=== PATIENT | male | born 1970 | race Caucasian/White ===

== ENCOUNTER 2018-03-14 06:05 | Observation (INO) | payer OTHER ==
[2018-03-03 08:14] VITALS: BMI 32.0
--- NOTE | 2018-03-03 09:15 | DIAGNOSTIC IMAGING REPORT ---
CHEST 2 VIEWS ROUTINE CLINICAL HISTORY: PAT preoperative evaluation COMPARISON STUDY: No previous studies for comparison. FINDINGS: The bones soft tissues and hemidiaphragms are normal. The cardiomediastinal silhouette is normal. The lungs are clear. The pulmonary vasculature is normal. IMPRESSION: Negative chest. The above report was generated using voice recognition software. It may contain grammatical, syntax or spelling errors. Electronically signed by: Ajit Laboy M.D. 03/03/2018 9:13 AM Dictated Date/Time: 03/03/2018 9:12 AM
[2018-03-03 10:00] LABS: BASO % 0.3 %; BASO ABS # 0.02 K/uL (0-0.2); EOS % 1.2 %; EOS ABS # 0.07 K/uL (0-0.5); HEMATOCRIT 44.3 % (42-52); HEMOGLOBIN 15.8 g/dL (14.0-18.0); IG# 0.03 K/uL (0.00-0.02); LYMPH % 22.5 %; LYMPH ABS # 1.34 K/uL (1.2-3.4); MEAN CORPUSCULAR HEMOGLOBIN 31.7 pg (25-34); MEAN CORPUSCULAR HGB CONC 35.7 g/dl (32-36); MEAN PLATELET VOLUME 10.4 fL (7.4-10.4); MONO % 8.4 %; NEUT % 67.1 %; PLATELET COUNT 211 K/uL (130-400); RED CELL DISTRIBUTION WIDTH CV 13.3 % (11.5-14.5); RED CELL DISTRIBUTION WIDTH SD 43.2 fL (36.4-46.3); WHITE BLOOD COUNT 5.96 K/uL (4.8-10.8)
[2018-03-03 10:21] LABS: POTASSIUM 4.8 mmol/L (3.5-5.1)
[2018-03-03 12:14] VITALS: Ht 193 cm; Wt 121.6 kg
[2018-03-13 23:30] VITALS: O2SAT 96
[2018-03-14] VITALS (15 sets, daily range): BP systolic 134–163; BP diastolic 78–107; PULSE 76–94; TEMP 36.5–36.8; O2SAT 95–98
[~2018-03-14] VITALS: Ht 193 cm; Wt 121.6 kg
[~2018-03-14 06:05] MED LIST: ACETAMINOPHEN 500 MG TAB PO SCH; CEFAZOLIN 2000MG IV PUSH 15 ML IV SCH; CeleBREX 200 MG CAP PO SCH; GABAPENTIN 900 MG PO SCH; LACTATED RINGER'S 1000ML 1,000 ML IV SCH
[2018-03-14] MEDS ORDERED: FENTANYL CITRATE INJ 50 MCG/1 ML 2 ML VIAL ONE ×4 (06:44→09:16)
[2018-03-14] MEDS ORDERED: MIDAZOLAM HCL 1 MG/ML 2ML VIAL ONE (06:44)
[2018-03-14] MEDS ORDERED: HYZ/50125 PO (06:44)
[2018-03-14] MEDS ORDERED: BACITRACIN 50000 UNIT VIAL ONE (06:59)
[2018-03-14] MEDS ORDERED: BUPIVACAINE/EPINEPHRINE 0.5% MPF 1:200,000 30 ML VIAL ONE (06:59)
--- NOTE | 2018-03-14 07:28 | History & Physical Bridge Note ---
H&P Re-Evaluation Bridge Note: I have examined the patient, reviewed the History & Physical and in the interval since the performance of the History & Physical I have noted the following changes of clinical significance: No changes noted
--- NOTE | 2018-03-14 07:30 | History and Physical ---
History & Physical Date Mar 14, 2018. Chief Complaint Neck and arm pain History of Present Illness The patient is a 47 year old male with complaints of neck and arm pain Additional History Hepatic Disease: No Endocrine Disorder: No Kidney Disease: No Hypertension: No Heart Disease: No Bleeding Tendencies: No Infectious Diseases: No Allergies Coded Allergies: No Known Allergies (Unverified , 03/14/18) Home Medications Scheduled Hctz/Losartan (Hyzaar 12.5MG/50MG), 1 TAB PO DAILY Physical Examination Skin: warm/dry, no rash Eyes: normal inspection, EOMI, sclerae normal ENT: normal ENT inspection, pharynx normal Head: normocephalic, atraumatic Neck: supple, no adenopathy, trachea midline Respiratory/Chest: lungs clear, normal breath sounds, no respiratory distress Cardiovascular: regular rate, rhythm, no edema, no murmur Abdomen / GI: normal bowel sounds, non tender Back: normal inspection Extremities: normal inspection, normal range of motion Neurologic/Psych: no motor/sensory deficits, alert, normal reflexes, oriented x 3 Diagnosis Cervical spinal stenosis with radiculopathy Plan of Treatment ACDF C5-6 C6-7
[2018-03-14] MEDS ORDERED: HYDROmorphone INJ 2 MG/ML SYR/VIAL ONE ×2 (08:09→09:27)
[2018-03-14] MEDS ORDERED: DEXAMETHASONE SOD INJ 4 MG/ML VIAL ONE (08:26)
[2018-03-14] MEDS ORDERED: ONDANSETRON INJ 2 MG/ML 2 ML VIAL ONE ×2 (08:26→10:25)
[2018-03-14] MEDS ORDERED: PROPOFOL IV EMULSION 10 MG/ML 20 ML VIAL IV ONE (08:26)
[2018-03-14] MEDS ORDERED: PHENYLEPHRINE 100MCG/ML 5ML SYR ONE ×2 (08:26→10:25)
[2018-03-14] MEDS ORDERED: LIDOCAINE HCL 2% 2 ML VIAL (20MG/ML) ONE (08:26)
[2018-03-14] MEDS ORDERED: HYDROmorphone INJ 0.5 MG/0.5 ML SYR IV PRN (08:45)
[2018-03-14] MEDS ORDERED: ATROPINE SULFATE 0.1 MG/ML 5ML SYR IV PRN (08:45)
[2018-03-14] MEDS ORDERED: EpHEDrine SULFATE INJ 50 MG/ML AMP IV PRN (08:45)
[2018-03-14] MEDS ORDERED: ONDANSETRON INJ 2 MG/ML 2 ML VIAL IV PRN ×2 (08:45→09:30)
[2018-03-14] MEDS ORDERED: MEPERIDINE HCL 25 MG/ML CARP IV PRN (08:45)
[2018-03-14] MEDS ORDERED: LABETALOL HCL IV 5 MG/ML 20ML IV PRN (08:45)
[2018-03-14] MEDS ORDERED: FLOSEAL HEMOSTATIC MATRIX 10ML TOP ONE (09:17)
--- NOTE | 2018-03-14 09:24 | [facility] Operative Report ---
Operative Report Operative Date Mar 14, 2018. Pre-Operative Diagnosis Cervical spinal stenosis with radiculopathy Post-Operative Diagnosis Cervical spinal stenosis with radiculopathy Procedure(s) Performed 1. anterior cervical discectomy bilateral foraminotomies C5-6 C6-7. 2 anterior cervical arthrodesis C5-6 C6-7. #3 placement of cortical allograft filled with DBM 8 mm in height at C5-6 C6-7. #4 application of silveira plate and screws across C5-6 C6-[address] Muniz Pedodontist Surgeon(s) CRISTINA Resendiz Estimated Blood Loss 10ml Findings Spinal stenosis Specimens none per surgeon Anesthesia Type General Description of Procedure Patient was met with preoperatively case discussed all questions addressed. After informed consent obtained patient was taken to the operative suite underwent intubation and placed in a supine position the Beni head in the [place] headholder. All bony prominences well-padded eyes inspected to ensure no external pressure placed upon. This point the anterior cervical spine was prepped and draped in normal sterile fashion. Sharp dissection with the assistance of bipolar electrocautery was performed down to and exposing the anterior cervical spine at C5-6 and 7. Self-retaining retractors placed. I verified position with fluoroscopy. Then performed a complete discectomy of C5- 6 up to the uncovertebral joints bilaterally. Scammon distracting pins utilized to assist in visualization. Removed all posterior annular fibers longitudinal ligament and bilateral foraminotomies performed addressing significant stenosis. The endplates then burred to subcortical bleeding bone and an 8 mm cortical allograft filled DBM was tapped in position. Distracting apparatus was removed and I proceeded to C6-7. Again complete discectomy performed up to the uncovertebral joints bilaterally. I removed all posterior annular fibers longitudinal ligament bilateral foraminotomies performed. Endplates burred to subcortical bleeding bone and again an 8 mm cortical allograft filled DBM tapped in position. Distracting apparatus was removed. All anterior osteophyte burred to a smooth cortical surface and a silveira plate and screws applied with the assistance of fluoroscopy. Incision was then copiously irrigated explored to ensure there is no damage to surrounding structures remaining bleeding. 10 round JENNIFER drain inserted. Incision was then closed with 2 Vicryl in a fashion for Monocryl for fashion closure. Steri-Strips sterile dressings placed. Patient weakened the PACU stable discrete please note Denny Gray was present throughout the entire procedure involved in patient positioning complex portions of the surgery and fashion closure. I attest to the content of the Intraoperative Record and any orders documented therein. Any exceptions are noted below.
[2018-03-14] MEDS ORDERED: DEXAMETHASONE INJ 8 MG in SYRINGE 0 ML IV PRN (09:30)
[2018-03-14] MEDS ORDERED: LORAZEPAM 0.5 MG TAB PO PRN (09:30)
[2018-03-14] MEDS ORDERED: DO NOT ADMINISTER FLU VACCINE PRN (09:30)
[2018-03-14] MEDS ORDERED: DiphenhydrAMINE HCL 50 MG/ML VIAL IV PRN (09:30)
[2018-03-14] MEDS ORDERED: DO NOT ADMINISTER PNEUMOCOCCAL VACCINE PRN (09:30)
[2018-03-14] MEDS ORDERED: NALOXONE HCL 0.4 MG/1 ML VIAL/CARP IV PRN (09:30)
[2018-03-14] MEDS ORDERED: ACETAMINOPHEN IV 1,000 MG in EMPTY BAG 0 ML IV PRN (09:30)
[2018-03-14] MEDS ORDERED: LORAZEPAM INJ 0.5 MG in SYRINGE 0.75 ML IV PRN (09:30)
[2018-03-14] MEDS ORDERED: RACEPINEPHRINE 2.25% NEBU SOLN 0.5 ML VIAL INH PRN (09:30)
[2018-03-14] MEDS ORDERED: MAGNESIUM HYDROXIDE SUSP 30 ML UDC PO PRN (09:30)
[2018-03-14] MEDS: FENTANYL CITRATE INJ 50 MCG/1 ML 2 ML VIAL IV PRN ×3 (09:59→10:13)
[2018-03-14] MEDS ORDERED: EpHEDrine SULFATE 50MG/5ML SYR ONE (10:25)
[2018-03-14] MEDS ORDERED: NEOSTIGMINE METHYLSULFATE 1 MG/ML 10ML VIAL ONE (10:25)
[2018-03-14] MEDS ORDERED: GLYCOPYRROLATE INJ 0.2 MG/ML VIAL ONE (10:25)
[2018-03-14] MEDS ORDERED: ROCURONIUM BROMIDE 10 MG/ML 5 ML VIAL IV ONE (10:25)
[2018-03-14] MEDS ORDERED: IV FLUIDS COMPLETED PRN (10:30)
--- NOTE | 2018-03-14 10:46 | Anesthesiology Progress Note ---
Anesthesia Post Op Note Date & Time Mar 14, 2018 at 10:46 Vital Signs Pain Intensity: 4 Vital Signs Past 12 Hours Date Time Temp Pulse Resp B/P (MAP) Pulse Ox O2 Delivery O2 Flow Rate FiO2 03/14/18 10:35 37.2 77 12 167/107 99 Nasal Cannula 3 03/14/18 10:25 86 12 161/104 99 Nasal Cannula 3 03/14/18 10:15 73 15 162/102 98 Nasal Cannula 3 03/14/18 10:05 73 15 145/104 98 Nasal Cannula 3 03/14/18 09:55 73 17 162/108 99 Oxymask 10 03/14/18 09:45 80 12 151/102 100 Oxymask 10 03/14/18 09:37 36.3 91 12 169/102 98 Oxymask 10 03/14/18 06:48 36.8 76 18 163/107 (125) 98 Room Air Notes Mental Status: alert / awake / arousable, participated in evaluation Pt Amnestic to Procedure: Yes Nausea / Vomiting: adequately controlled Pain: adequately controlled Airway Patency, RR, SpO2: stable & adequate BP & HR: stable & adequate Hydration State: stable & adequate Anesthetic Complications: no major complications apparent
--- NOTE | 2018-03-14 11:54 | DIAGNOSTIC IMAGING REPORT ---
CERVICAL 2 OR 3 VIEWS CLINICAL HISTORY: ACDF C5-7 COMPARISON STUDY: No previous studies for comparison. Fluoroscopy time: 21 seconds. FINDINGS: Exact localization is difficult given partial visualization of the cervical spine. These images demonstrate a 3 level anterior discectomy and fusion within the lower cervical spine, likely at the C5, C6 and C7 levels. IMPRESSION: Fluoroscopic images demonstrating an anterior cervical spine discectomy and fusion, likely at C5-C7. Electronically signed by: Travis Carvajal M.D. 03/14/2018 11:52 AM Dictated Date/Time: 03/14/2018 11:51 AM
[2018-03-14] MEDS ORDERED: SCOPOLAMINE 1.5 MG TDSY TD SCH (12:00)
[2018-03-14] MEDS ORDERED: LOSARTAN POTASSIUM 50 MG TAB PO ONE (12:00)
[2018-03-14] MEDS: HYDROmorphone INJ 0.5 MG/0.5 ML SYR IV PRN ×3 (12:21→20:32)
[2018-03-14] MEDS ORDERED: HydrALAZINE HCL 20 MG/ML VIAL IV. PRN (12:45)
[2018-03-14] MEDS ORDERED: NURSING VERBAL MED ORDER ONE (12:50)
[2018-03-14] MEDS: SODIUM CHLORIDE 0.9% 1000ML 1,000 ML IV SCH (12:51)
--- NOTE | 2018-03-14 13:03 | Medical Consult ---
Consultation Date of Consultation: Mar 14, 2018. Attending Physician: Sharif Muniz D.O. Reason for Consultation: post-op med management History of Present Illness This is a 47 yo F with a PMH of cervical stenosis who is POD #0 s/p cervical anterior discectomy of C5-C7 by Dr. Muniz. Patient is doing well post- operatively. States that back pain is a 6/10. Denies any pain, fever, chills, lightheadedness, headache, visual changes, sore throat, CP, SOB, abdominal pain , nausea, vomiting, dysuria or LE swelling. Denies history of DM II, heart disease or DVT/PE. PCP is Dr. Howard. Past Medical/Surgical History Medical Problems: (1) Cervical stenosis of spinal canal Status: Chronic (2) HTN (hypertension) Status: Chronic Surgical Problems: (1) History of arthroscopy of both knees Status: Resolved Family History FH: prostate cancer Hypertension Social History Smoking Status: Never Smoker Marital Status: Housing Status: lives with family Allergies Coded Allergies: No Known Allergies (Unverified , 03/14/18) Home Medications Reported Home Medications Medications Dose Route/Sig Max Daily Dose Days Date Category Aspirin 81 (Aspirin) 81 Mg Tab 1 Tab PO DAILY 03/14/18 Reported Hyzaar 12.5MG/50MG (HCTZ/Losartan Potassium) Tab 1 Tab PO DAILY 30 03/14/18 Reported Current Inpatient Medications Current Inpatient Medications Medications (Trade) Dose Ordered Sig/Lana Route Start Time Stop Time Status Last Admin Dose Admin Lactated Ringer's 1,000 ml @ 15 mls/hr Q24H IV 03/14/18 06:00 03/14/18 18:00 03/14/18 06:59 15 MLS/HR Cefazolin Sodium 15 ml @ 3.75 mls/ min PREOP IV 03/14/18 06:00 03/14/18 18:00 03/14/18 07:38 3.75 MLS/MIN Acetaminophen (Tylenol Tab) 1,000 mg PREOP PO 03/14/18 06:00 03/14/18 18:00 03/14/18 07:01 1,000 MG Celecoxib (CeleBREX CAP) 200 mg PREOP PO 03/14/18 06:00 03/14/18 18:00 03/14/18 07:00 200 MG Gabapentin (Neurontin Cap) 900 mg PREOP PO 03/14/18 06:00 03/14/18 18:00 03/14/18 07:00 900 MG Fentanyl Citrate (Fentanyl Inj) 50 mcg Q5M PRN IV 03/14/18 08:45 03/14/18 15:00 03/14/18 10:13 50 MCG Hydromorphone HCl (Dilaudid Inj) 0.5 mg Q5M PRN IV 03/14/18 08:45 03/14/18 15:00 Meperidine HCl (Demerol Inj) 25 mg Q5M PRN IV 03/14/18 08:45 03/14/18 15:00 Ondansetron HCl (Zofran Inj) 4 mg ONE PRN IV 03/14/18 08:45 03/14/18 15:00 Labetalol HCl (Normodyne IV) 5 mg Q5M PRN IV 03/14/18 08:45 03/14/18 15:00 Ephedrine Sulfate (EpHEDrine SULFATE INJ) 5 mg Q5M PRN IV 03/14/18 08:45 03/14/18 15:00 Atropine Sulfate (Atropine Sulfate 0.1mg/ml Inj) 0.5 mg Q1M PRN IV 03/14/18 08:45 03/14/18 15:00 Racepinephrine (Raccemic Epinephrine 2.25% 0.5ML Neb) 0.5 ml ONE PRN INH 03/14/18 09:30 04/13/18 09:29 Acetaminophen 1000 mg/Empty Bag 100 ml @ 400 mls/hr Q8H PRN IV 03/14/18 09:30 04/13/18 09:29 Hydromorphone HCl (Dilaudid Inj) 0.5mg IV for moder... Q3H PRN IV 03/14/18 09:30 03/28/18 09:29 03/14/18 12:21 1 MG Magnesium Hydroxide (Milk Of Magnesia Susp) 30 ml DAILY PRN PO 03/14/18 09:30 04/13/18 09:29 Docusate Sodium (coLACE CAP) 100 mg BID PO 03/14/18 21:00 04/13/18 20:59 Ondansetron HCl (Zofran Inj) 4 mg Q6 PRN IV 03/14/18 09:30 04/13/18 09:29 Scopolamine (Transderm-Scop Patch) 1.5 mg Q72H TD 03/14/18 12:00 04/13/18 11:59 03/14/18 12:53 1.5 MG Cefazolin Sodium 2000 mg/Syringe 15 ml @ 3.75 mls/ min Q8H IV 03/14/18 18:00 03/15/18 10:03 Lorazepam (Ativan Tab) 0.5 mg Q8H PRN PO 03/14/18 09:30 04/13/18 09:29 Lorazepam 0.5 mg/ Syringe 1 ml @ 1 mls/min Q8H PRN IV 03/14/18 09:30 04/13/18 09:29 Diphenhydramine HCl (Benadryl Inj) 25 mg Q6H PRN IV 03/14/18 09:30 04/13/18 09:29 Pneumococcal Polysaccharide Vaccine 1 ea PRN PRN N/A 03/14/18 09:30 04/13/18 09:29 Influenza Virus Vacc Triv Types A&B 1 ea PRN PRN N/A 03/14/18 09:30 04/13/18 09:29 Sodium Chloride 1,000 ml @ 80 mls/hr [id number] IV 03/14/18 12:00 03/15/18 11:59 03/14/18 12:51 80 MLS/HR Oxycodone/ Acetaminophen (Percocet 5-325mg Tab) 1 tablet for pain scale ... Q4H PRN PO 03/14/18 09:30 03/28/18 09:29 Polyethylene (Miralax Powder Packet) 17 gm DAILY PO 03/16/18 09:00 04/15/18 08:59 Bisacodyl (Dulcolax Tab) 5 mg DAILY PRN PO 03/16/18 06:00 04/15/18 05:59 Bisacodyl (Dulcolax Supp) 10 mg DAILY PRN DE 03/16/18 06:00 04/15/18 05:59 Dexamethasone Sodium Phosphate 8 mg/Syringe 2 ml @ 1 mls/min ONE PRN IV 03/14/18 09:30 04/13/18 09:29 Naloxone HCl (Narcan Inj) 0.1 mg Q5M PRN IV 03/14/18 09:30 04/13/18 09:29 Miscellaneous (Remove Transderm-Scop Patch) 1 ea Q72H N/A 03/17/18 11:59 04/16/18 11:58 Miscellaneous Information (Check Scopolamine Patch Placement) 1 ea QS N/A 03/14/18 16:00 04/13/18 15:59 HCTZ/Losartan Potassium (Hyzaar 50-12.5 Tab) 1 tab DAILY PO 03/15/18 09:00 04/14/18 08:59 Miscellaneous (Iv Fluids Completed) 1 ea PRN PRN N/A 03/14/18 10:30 03/14/19 10:29 Hydralazine HCl (HydrALAZINE INJ) 10 mg Q8 PRN IV. 03/14/18 12:45 04/13/18 12:44 Review of Systems Ten systems reviewed and negative except as noted in the HPI. Physical Exam Date Time Temp Pulse Resp B/P (MAP) Pulse Ox O2 Delivery O2 Flow Rate FiO2 03/14/18 12:20 36.6 83 16 153/103 95 Nasal Cannula 2.0 Humidified Oxygen 03/14/18 11:50 36.6 78 16 152/103 97 Nasal Cannula 2.0 Humidified Oxygen 03/14/18 11:20 Nasal Cannula 2.0 Humidified Oxygen 03/14/18 11:20 36.7 80 16 154/99 98 Nasal Cannula 2.0 Humidified Oxygen 03/14/18 11:20 98 Nasal Cannula 2.0 Humidified Oxygen 03/14/18 11:00 74 12 149/100 97 Nasal Cannula 2 03/14/18 10:50 73 12 155/100 99 Nasal Cannula 3 03/14/18 10:35 37.2 77 12 167/107 99 Nasal Cannula 3 03/14/18 10:25 86 12 161/104 99 Nasal Cannula 3 03/14/18 10:15 73 15 162/102 98 Nasal Cannula 3 03/14/18 10:05 73 15 145/104 98 Nasal Cannula 3 03/14/18 09:55 73 17 162/108 99 Oxymask 10 03/14/18 09:45 80 12 151/102 100 Oxymask 10 03/14/18 09:37 36.3 91 12 169/102 98 Oxymask 10 03/14/18 06:48 36.8 76 18 163/107 (125) 98 Room Air General Appearance: WD/WN, no apparent distress, + pertinent finding (Resting comfortably, sleeping intermittently during exam ) Head: normocephalic, atraumatic Eyes: normal inspection, PERRL, sclerae normal ENT: normal ENT inspection, hearing grossly normal, pharynx normal (moist mucous membranes ) Neck: supple, thyroid normal, trachea midline, + pertinent finding (Dressing in place on anterior neck. Clean, dry, intact. Drain visualized. ) Respiratory/Chest: chest non-tender, lungs clear, normal breath sounds, no respiratory distress, no accessory muscle use Cardiovascular: regular rate, rhythm, no murmur, normal peripheral pulses Abdomen/GI: non tender, soft, no organomegaly Back: normal inspection Extremities/Musculoskelatal: normal inspection, no calf tenderness, no pedal edema, + pertinent finding (SCDs ) Neurologic/Psych: no motor/sensory deficits, alert, normal mood/affect, oriented x 3 Skin: normal color, warm/dry Laboratory Results Pertinent pre-op labs: Item Value Date Time White Blood Count 5.96 K/uL 03/03/18 0850 Red Blood Count 4.98 M/uL 03/03/18 0850 Hemoglobin 15.8 g/dL 03/03/18 0850 Platelet Count 211 K/uL 03/03/18 0850 Sodium Level 137 mmol/L 03/03/18 0850 Potassium Level 4.8 mmol/L 03/03/18 0850 Chloride Level 107 mmol/L 03/03/18 0850 Blood Urea Nitrogen 11 mg/dl 03/03/18 0850 Creatinine 1.00 mg/dl 03/03/18 0850 Estimated GFR (Non- 89.2 03/03/18 0850 Assessment & Plan This is a 47 yo F with a PMH of cervical stenosis who is POD #0 s/p cervical anterior discectomy of C5-C7. Cervical stenosis s/p anterior cervical discectomy: -POD #[address] Muniz -Doing well post-operatively -Per ortho for pain control, wound care, anticoagulation and activities -Monitor H&H, continue incentive spirometry, PT/OT when appropriate HTN: -BP elevated ~150/100 post-operatively -Took home dose hctz-losartan this AM -Nothing given post-operatively in PACU -Post-op pain a likely contributor -Hydralazine PRN -Cont home hctz-losartan qAM -Monitor PCP: Norma Dispo: Per ortho Patient seen in collaboration with Dr. Ryder. Please see addendum. Thank you for this consultation. We will follow the patient with you during their hospital stay. You can reach a member of the [facility] Hospitalist Team 10/06 via pager @ [phone]. Attending Addendum Pt was seen and examined. Agreed with Mary ROSSI exam, assessment and plan. 47 yo F with a PMH of cervical stenosis, s/p cervical anterior discectomy of C5- C7 doen today by Dr. Muniz. Lying in bed sleeping with family at bedside. He just received Dilaudid for the pain. No post op complications. Medicine was consulted for HTN with BP in the 150's/100's. Received IV hydralazine and BP improved now. Continue monitor BP. Continue incentive spirometry , PT/OT. MD Aleksey
[2018-03-14] MEDS ORDERED: ASPI-435 PO (13:16)
[2018-03-14] MEDS ORDERED: HydrALAZINE HCL 20 MG/ML VIAL IV. ONE (13:30)
[2018-03-14] MEDS: CHECK SCOPOLAMINE PATCH PLACEMENT SCH (15:19)
[2018-03-14] MEDS: CEFAZOLIN IV 2,000 MG in SYRINGE 0 ML IV SCH (18:17)
[2018-03-14] MEDS: OXYCODONE/ACETAMINOPHEN 5-325 TAB PO PRN (18:30)
[2018-03-14] MEDS: DOCUSATE SODIUM 100 MG CAP PO SCH (20:31)
[2018-03-15] VITALS (13 sets, daily range): BP systolic 124–141; BP diastolic 78–91; PULSE 65–80; TEMP 36.5–36.9; O2SAT 97–99
[2018-03-15] MEDS: CHECK SCOPOLAMINE PATCH PLACEMENT SCH ×2 (00:09→07:25)
[2018-03-15] MEDS: SODIUM CHLORIDE 0.9% 1000ML 1,000 ML IV SCH (00:30)
[2018-03-15] MEDS: CEFAZOLIN IV 2,000 MG in SYRINGE 0 ML IV SCH ×2 (02:07→09:56)
--- NOTE | 2018-03-15 07:56 | Orthopedic Progress Note ---
Orthopedic Progress Note Date of Service Mar 15, 2018. Subjective Post OP Day: 1 Reports: feeling well Additional Notes: Patient has complaints of anterior and posterior neck pain only. No radicular upper extremity symptoms. He has been on a liquid diet but no dysphagia thus far. He is up and ambulatory around his room and voiding without issue. JENNIFER drain output last shift was 15 cc. No other complaints. Objective calves soft nontender, N/V intact, dressing C/D/I, A&O x3, toes mobile He sitting in bed with Hammon J collar in place. Cervical dressing is clean dry and intact. He is in no obvious distress. Upper extremity strength intact. Calves soft nontender bilaterally. Date Time Temp Pulse Resp B/P (MAP) Pulse Ox O2 Delivery O2 Flow Rate FiO2 03/15/18 07:45 36.6 73 18 135/86 (102) 98 Room Air 03/15/18 07:04 80 14 97 Room Air 03/15/18 06:28 36.5 65 16 141/91 (108) 99 Nasal Cannula 2.0 03/15/18 06:22 36.5 69 14 141/91 99 Room Air 2.0 03/15/18 04:25 36.6 69 16 127/80 (96) 99 Nasal Cannula 2.0 03/15/18 04:24 36.6 69 14 127/80 (96) 99 Nasal Cannula 2.0 Humidified Oxygen 03/15/18 04:23 36.6 69 14 127/80 99 Nasal Cannula 2.0 Humidified Oxygen 03/15/18 03:32 79 16 99 Nasal Cannula 2.0 03/15/18 02:20 36.6 71 14 124/78 (93) 98 Nasal Cannula 2.0 Humidified Oxygen 03/15/18 02:20 36.6 72 14 124/78 99 Room Air 2.0 Humidified Oxygen 03/15/18 00:22 36.5 71 14 127/79 (95) 98 Nasal Cannula 2.0 Humidified Oxygen 03/15/18 00:22 36.5 71 14 127/79 98 Nasal Cannula 2.0 Humidified Oxygen 03/14/18 23:30 98 Nasal Cannula 2.0 Humidified Oxygen 03/14/18 23:05 78 14 98 Nasal Cannula 2.0 03/14/18 22:20 36.6 77 18 134/78 97 Nasal Cannula 2.0 Humidified Oxygen 03/14/18 20:20 36.6 88 18 151/83 98 Nasal Cannula 2.0 03/14/18 19:32 90 18 98 Nasal Cannula 2.0 03/14/18 18:20 36.5 87 16 138/89 97 Nasal Cannula 2.0 Humidified Oxygen 03/14/18 16:20 36.6 91 16 145/84 97 Nasal Cannula 2.0 Humidified Oxygen 03/14/18 15:49 94 18 97 Nasal Cannula 2.0 03/14/18 15:20 97 Nasal Cannula 2.0 Humidified Oxygen 03/14/18 14:20 36.6 84 16 135/92 97 Nasal Cannula 2.0 Humidified Oxygen 03/14/18 13:20 36.7 85 14 144/89 97 Nasal Cannula 2.0 Humidified Oxygen 03/14/18 12:20 36.6 83 16 153/103 95 Nasal Cannula 2.0 Humidified Oxygen 03/14/18 11:50 36.6 78 16 152/103 97 Nasal Cannula 2.0 Humidified Oxygen 03/14/18 11:20 Nasal Cannula 2.0 Humidified Oxygen 03/14/18 11:20 36.7 80 16 154/99 98 Nasal Cannula 2.0 Humidified Oxygen 03/14/18 11:20 98 Nasal Cannula 2.0 Humidified Oxygen 03/14/18 11:00 74 12 149/100 97 Nasal Cannula 2 03/14/18 10:50 73 12 155/100 99 Nasal Cannula 3 03/14/18 10:35 37.2 77 12 167/107 99 Nasal Cannula 3 03/14/18 10:25 86 12 161/104 99 Nasal Cannula 3 03/14/18 10:15 73 15 162/102 98 Nasal Cannula 3 03/14/18 10:05 73 15 145/104 98 Nasal Cannula 3 03/14/18 09:55 73 17 162/108 99 Oxymask 10 03/14/18 09:45 80 12 151/102 100 Oxymask 10 03/14/18 09:37 36.3 91 12 169/102 98 Oxymask 10 Assessment & Plan Assessment: Postoperative day 1 ACDF Plan: We will DC drain. Continue ambulation. Start a soft diet. And discharge home later today. Inhouse Planning DVT Prophylaxis: TEDs, SCDs Discharge Planning Discharge Planning: home DVT Prophylaxis: Airam
[2018-03-15] MEDS ORDERED: OXYC-57 PO (08:00)
--- NOTE | 2018-03-15 08:03 | Discharge Instructions ---
Discharge Instructions Date of Service Mar 15, 2018. Admission Reason for Admission: Cervical Spinal Stenosis Discharge Discharge Diagnosis / Problem: cervical spinal stenosis s/p ACDF Discharge Goals Goal(s): Decrease discomfort, Improve function Activity Recommendations Activity Limitations: per Instructions/Follow-up section Lifting Limitations: no more than 5 pounds Exercise/Sports Limitations: none Shower/Bathe: tomorrow Driving or Machine Use: . Instructions / Follow-Up Instructions / Follow-Up ACTIVITY RECOMMENDATIONS: SELF CARE INSTRUCTIONS AFTER CERVICAL FUSIONS 1. No smoking. Smoking drastically decreases the chance of a solid fusion. 2. No bending, lifting more than 5 pounds, or twisting (roll like a log when turning in bed). 3. You may shower 3 days after surgery. Thoroughly dry wound. Do not soak in the tub. 4. Cervical collar: Must be worn at all times including sleeping. You may remove the brace only to bath, eat and if you are sitting in a recliner. 5. Please walk as much as you can for exercise. Gradually increase the distance that you walk as your endurance increases. SPECIAL CARE INSTRUCTIONS: VERY IMPORTANT TO READ AND REVIEW A. Do not take any anti-inflammatory medications (i.e. Indocin, Advil, Aspirin, Naprosyn, Aleve, Motrin, etc.) as these may inhibit the chance of a solid fusion. Tylenol is okay to take. B. Your surgical incision has been closed with a cosmetic suture under the skin that will dissolve in about 6 weeks. In 14 days, you can use a pair of clean scissors and cut the suture that is left outside of the skin at the ends of your incision. C. Complications are uncommon, but please contact us if you have any signs or symptoms of: 1. wound infection (fever higher than 102.5 degrees F, redness, separation of wound, drainage, or increasing pain from the incision) 2. blood clots in legs (pain, swelling, redness and warmth in legs) 3. urinary tract infection (fever higher than 102.5 degrees, burning upon urination or increased frequency of urination) 4. nerve problems (inability to walk on your toes or heels, numbness, loss of bowel or bladder control) 5. any other symptoms that concern you. D. Please call the office at if you have any concerns or questions about your operation or recovery. MANAGING PAIN AFTER SPINAL SURGERY 1. Narcotic medication is intended for short-term use and will be provided for surgical pain. Surgical pain usually lasts for a period of 4-6 weeks. Narcotic medication includes Percocet, Vicodin, Darvocet, Tylenol #3 or Lortab. 2. Longer-term pain is more appropriately treated with non-narcotic medication such as Tylenol ES. 3. Muscle spasm is not appropriately treated with narcotics. Muscle relaxers such as Soma, Flexeril or Skelaxin can be used along with Tylenol ES. 4. Remember that we all live with some "aches and pains". This is not unusual or uncommon after an injury or as we get older. 5. We will provide appropriate medication within the normal guidelines of their prescribed use. We will also be very cautious and aware of potential abuse and extended duration of patients' medication needs. 6. Please allow 2-3 days to process refills. Prescriptions will not be mailed but must be picked up at the office. FOLLOW UP VISIT: Keep your scheduled follow-up appointment. Any questions, please call the office at . Current Hospital Diet Patient's current hospital diet: Clear Liquid Diet Discharge Diet Recommended Diet: Regular Diet Procedures Procedures Performed: 1. anterior cervical discectomy bilateral foraminotomies C5-6 C6-7. 2 anterior cervical arthrodesis C5-6 C6-7. #3 placement of cortical allograft filled with DBM 8 mm in height at C5-6 C6-7. #4 application of silveira plate and screws across C5-6 C6-7. Pending Studies Studies pending at discharge: no Medical Emergencies . Who to Call and When: Medical Emergencies: If at any time you feel your situation is an emergency, please call 911 immediately. . Non-Emergent Contact Non-Emergency issues call your: Primary Care Provider, Surgeon Call Non-Emergent contact if: temperature is above 101, your pain is not controlled, your pain is worsening, your pain is concerning you, wound has increased drainage, wound has increased redness . "Provider Documentation" section prepared by Stacy Cochran. .
--- NOTE | 2018-03-15 08:37 | Discharge Summary ---
Orthopedic Discharge Summary Admission Date/Reason Mar 14, 2018 at 09:28 Cervical Spinal Stenosis. Discharge Date/Disposition Mar 15, 2018 Home Diagnosis Principal Diagnosis: Cervical spinal stenosis Procedure(s) Performed ACDF C5-6, C6-7 Medication Reconciliation New Medications: Oxycodone/Acetaminophen 5MG/325MG (Percocet 5MG/325MG) Tab 1-2 TAB PO Q4H PRN for moderate-severe pain, #30 TAB PAIN Continued Medications: Hctz/Losartan (Hyzaar 12.5MG/50MG) Tab 1 TAB PO DAILY for 30 Days, #30 TAB 5 Refills Discontinued Medications: Aspirin (Aspirin 81) 81 Mg Tab 1 TAB PO DAILY Admission Physical Exam As per Admitting History & Physical. Hospital Course Patient has had an uneventful hospital course. Pain is controlled. He is up and ambulatory and voiding without issue. No significant dysphagia. therefore discharged home on postoperative day 1. Discharge Instructions Please refer to the electronic Patient Visit Report (Discharge Instructions) for additional information.
[2018-03-15] MEDS ORDERED: LOSARTAN/HCTZ 50-12.5 EA TAB PO SCH (09:00)
[2018-03-15] MEDS: DOCUSATE SODIUM 100 MG CAP PO SCH (09:14)
[2018-03-15] MEDS: OXYCODONE/ACETAMINOPHEN 5-325 TAB PO PRN (09:17)
[2018-03-16] MEDS ORDERED: BISACODYL 5 MG TABEC PO PRN (06:00)
[2018-03-16] MEDS ORDERED: BISACODYL 10 MG SUPP PR PRN (06:00)
[2018-03-16] MEDS ORDERED: POLYETHYLENE (MIRALAX) 17 GM PACK PO SCH (09:00)
== END 2018-03-15 11:07 | disposition home or self-care (01) ==
LOC: C.ACU 06:05 → C.3E 09:28 → ENRESERV 10:33
PROVIDERS: ADMIT Orthopaedic Surgery Orthopaedic Surgery of the Spine; ATTEND Orthopaedic Surgery Orthopaedic Surgery of the Spine
DX: M48.02 Spinal stenosis, cervical region (principal); M54.12 Radiculopathy, cervical region; I10 Essential (primary) hypertension; Z79.82 Long term (current) use of aspirin; E66.9 Obesity, unspecified; Z68.32 Body mass index [BMI] 32.0-32.9, adult; Z90.89 Acquired absence of other organs

== ENCOUNTER 2024-10-30 06:09 | Observation (INO) ==
--- NOTE | 2024-09-29 09:35 | PAT Medication Instructions ---
Medication Instructions Date of Service September 29, 2024 Home Medications Vitamin D3 1 dose PO QAM aspirin 81 mg capsule 81 mg PO QAM losartan 50 mg-hydrochlorothiazide 12.5 mg tablet 1 tab PO QAM paroxetine HCl 10 mg tablet 10 mg PO QAM ASK your prescriber and surgeon aspirin 81 mg capsule 81 mg PO QAM DO NOT take the morning of surgery Vitamin D3 1 dose PO QAM losartan 50 mg-hydrochlorothiazide 12.5 mg tablet 1 tab PO QAM Take morning of surgery With a small sip of water, OTHERWISE NOTHING TO EAT OR DRINK AFTER MIDNIGHT: paroxetine HCl 10 mg tablet 10 mg PO QAM Other Notes If you have any questions please call us at [phone] or [phone] or [phone] or [phone]
--- NOTE | 2024-10-02 13:12 | Anesthesiology Consultation ---
Date of Service October 02, 2024 Assessment & Plan (1) Encounter for pre-operative examination: - Infectious disease screening: Per assessment on 10/02/24- No known recent infectious disease contacts or current infectious disease symptoms. - S/P C5-7 ACDF (03/14/2018): Glidescope#4, ETT [address] [facility] - Patient acceptable risk for surgery pending surgeon-ordered PCP preop evaluat ion (GAGANDEEP Dupree, appt 10/21). Chart Review Chart Review: Patient seen in Pre Admission Testing Teaching & Discussion Pre-Anesthesia Teaching/Discussion Notes: Instructed NPO after midnight before surgery,except medications with 15 cc of water. Medication instructions provided according to the PAT guidelines. History Surgery Operation Date: 10/30/24 10:05 Proposed Procedures p C3-C5 Anterior Cervical Discectomy Fusion - Sharif Muniz DO Height/Weight Height: 6 ft 4 in Weight: 128.8 kg Allergies Allergy/AdvReac Type Severity Reaction Status Date / Time No Known Allergies Allergy Verified 09/25/24 08:53 Medications Home Medications Medication Instructions Recorded Confirmed Last Taken Vitamin D3 1 dose PO QAM 09/25/24 09/25/24 Unknown aspirin 81 mg capsule 81 mg PO QAM 09/25/24 09/25/24 Unknown losartan 50 mg-hydrochlorothiazide 1 tab PO QAM 09/25/24 09/25/24 Unknown 12.5 mg tablet paroxetine HCl 10 mg tablet 10 mg PO QAM 09/25/24 09/25/24 Unknown Past Medical History Medical History History of blood clots Remote hx LLE "superficial blood clots" ~2008 Hypertension Osteoarthritis Exercise / Class Metabolic Activity II 4-5 Yardwork/Stairs/Walk up hill (one FS: No CP, no SOB ) Past Family History Family History Other No family history of adverse response to anesthesia Past Surgical History Surgical History History of arthroscopy of both knees Per records History of tonsillectomy S/P ACL reconstruction left S/P cervical discectomy C5-7 ACDF (03/14/2018): Glidescope#4, ETT [address] [facility] S/P right knee arthroscopy Past Anesthesia History No Hx of Anesthesia Complications and No Family Hx of Anesthesia Complications History of PONV No Hx of PONV and No Hx of Motion Sickness Social History Smoking Status: Never smoker Do You Dip or Chew Tobacco: Yes (1 can/3 days (Advised none DOS)) Hx Alcohol Use: Yes Alcohol type: beer alcohol intake frequency: a few times a week (At most) Hx Substance Use: No substance use type: does not use Review of Systems Patient denies chest pain, shortness of breath, dyspnea on exertion, fever, chills, cough, wheezing, palpitations. Physical Exam Vital Signs BP 143/94 P 97 TEMP 98.2 SP02 95%RA RESP 16 Physical Mildly decreased cervical extension range of motion. Full TMJ range of motion. TMD > 3.5 finger breaths Mallampati Score I Dentition: missing sides Lungs: clear throughout to auscultation Cardiac: regular rate and rhythm, no murmurs noted Spine: normal Carotid arteries: negative bruit Extremities: no LE edema Lab Results Anesthesia Preop Results Results Anesthesia Widget: WBC 6.77 K/ul (4.8-10.8) 10/02/24 Hgb 15.9 g/dl (14.0-18.0) 10/02/24 Hct 45.1 % (42.0-52.0) 10/02/24 Plt 235 K/uL (130-400) 10/02/24 Na 139 mmol/L (136-145) 10/02/24 K 4.1 mmol/L (3.5-5.1) 10/02/24 Cl 103 mmol/L (98-107) 10/02/24 CO2 28 mmol/L (21-32) 10/02/24 BUN 13 mg/dl (6-23) 10/02/24 Creat 1.04 mg/dl (0.6-1.4) 10/02/24 Glucose Level 98 mg/dl (70-99(Fasting)) 10/02/24 PT 11.0 Seconds (9.0-12.0) 10/02/24 PTT 24 Seconds (21-31) 10/02/24 INR 1.0 (0.9-1.1) 10/02/24 Urine Color Yellow 10/02/24 Urine Appearance Clear (Clear) 10/02/24 Urine pH 6.5 (4.5-7.5) 10/02/24 Urine Specific [place] 1.009 (1.000-1.030) 10/02/24 Urine Protein Negative (Negative) 10/02/24 Urine Glucose (UA) Negative (Negative) 10/02/24 Urine Ketones Negative (Negative) 10/02/24 Urine Blood Negative (Negative) 10/02/24 Urine Nitrite Negative (Negative) 10/02/24 Urine Bilirubin Negative (Negative) 10/02/24 Urine Urobilinogen Negative (Negative) 10/02/24 Urine Leukocyte Esterase Negative (Negative) 10/02/24 Blood Type A Positive 10/02/24 Antibody Screen NEGATIVE 10/02/24 Testing Electrocardiogram Date: 10/02/24 Findings: + NSR @ (89) Chest X-Ray Date: 10/02/24 Findings: + NAD
[2024-10-30] MEDS: LACTATED RINGER'S 1,000 ML IV SCH (06:50)
[2024-10-30] MEDS: GABAPENTIN 600 MG DOSE PO SCH (06:50)
[2024-10-30] MEDS: ACETAMINOPHEN 500 MG TAB PO SCH (06:51)
[2024-10-30] MEDS: LR 60ML/HR IV SCH (06:51)
[2024-10-30] MEDS: CeleBREX 200 MG CAP PO SCH (06:51)
[2024-10-30] MEDS ORDERED: ONDANSETRON INJ 2 MG/ML 2 ML VIAL ONE (07:12)
[2024-10-30] MEDS ORDERED: LIDOCAINE 2% 2 ML VIAL/AMP(20MG/ML) INFIL ONE (07:12)
[2024-10-30] MEDS ORDERED: GLYCOPYRROLATE 0.2 MG/ML VIAL ONE (07:12)
[2024-10-30] MEDS ORDERED: DEXAMETHASONE SOD INJ 4 MG/ML VIAL ONE (07:12)
[2024-10-30] MEDS ORDERED: PROPOFOL IV EMULSION 10 MG/ML 20 ML VIAL IV ONE ×3 (07:12→08:31)
[2024-10-30] MEDS ORDERED: ROCURONIUM BROMIDE 10 MG/ML 5 ML VIAL IV ONE ×3 (07:12→08:08)
[2024-10-30] MEDS ORDERED: fentaNYL citrate PF 100 MCG/2 ML VIAL ONE (07:17)
[2024-10-30] MEDS ORDERED: MIDAZOLAM HCL 1 MG/ML 2ML VIAL ONE (07:17)
[2024-10-30] MEDS ORDERED: ePHEDrine sulfate 50 MG/ML AMP IV PRN (07:20)
[2024-10-30] MEDS ORDERED: ATROPINE SULFATE 0.1 MG/ML 10ML SYR IV PRN (07:20)
[2024-10-30] MEDS ORDERED: HYDROmorphone INJ 1 MG/ML SYRINGE IV PRN (07:20)
[2024-10-30] MEDS ORDERED: ONDANSETRON INJ 2 MG/ML 2 ML VIAL IV PRN ×2 (07:20→11:14)
--- NOTE | 2024-10-30 07:37 | History & Physical Bridge Note ---
Date of Service October 30, 2024 History & Physical Bridge Note I have examined the patient, reviewed the History & Physical and in the interval since the performance of the History & Physical I have noted the following changes of clinical significance: no changes noted
--- NOTE | 2024-10-30 07:38 | History & Physical Report ---
Date of Service October 30, 2024 Assessment & Plan (1) Herniation of cervical intervertebral disc with radiculopathy: Plan: C3-C5 anterior cervical discectomy and fusion History of Present Illness Chief Complaint: Neck and arm pain Primary Care Provider: Maryan Root PA-C This is a 54-year-old male presents chronic persistent neck and arm pain after failing course of nonoperative care for surgical invention. Allergies Allergy/AdvReac Type Severity Reaction Status Date / Time No Known Allergies Allergy Verified 10/30/24 06:36 Home Medications Medication Instructions Recorded Confirmed Type Vitamin D3 1 dose PO QAM 09/25/24 10/30/24 History aspirin 81 mg capsule 81 mg PO QAM 09/25/24 10/30/24 History losartan 50 mg-hydrochlorothiazide 1 tab PO QAM 09/25/24 10/30/24 History 12.5 mg tablet paroxetine HCl 10 mg tablet (Paxil) 10 mg PO QAM 09/25/24 10/30/24 History Past Med/Surg History Problem List (Updated 10/30/24 @ 07:38 by Sharif Muniz DO) Herniation of cervical intervertebral disc with radiculopathy Encounter for pre-operative examination Medical History History of blood clots Remote hx LLE "superficial blood clots" ~2008 Hypertension Osteoarthritis Surgical History History of arthroscopy of both knees Per records History of tonsillectomy S/P ACL reconstruction left S/P cervical discectomy C5-7 ACDF (03/14/2018): Glidescope#4, ETT 8.0 at [facility] S/P right knee arthroscopy Family History Other No family history of adverse response to anesthesia Social History Smoking Status: Never smoker Tobacco Type: Smokeless Tobacco (Dip or Chew) Second Hand Exposure: No; Do You Dip or Chew Tobacco: Yes (1 can/3 days (Advised none DOS)); Tobacco Cessation Education Requested by Patient: No Hx Alcohol Use: Yes Alcohol type: beer Hx Substance Use: No Preferred Language: Japanese Communication Ability: Effective Class C Truck Driver Required: No Beliefs That Will Affect Care: None Current Living Situation: Spouse Other Information That Helps Us Care for You: No Feels Safe at Home: Yes Safety Concerns: Feels Safe At This Time Assistive Devices: Glasses Physical Exam Physical Exam: Patient is alert and oriented Heart regular rhythm Lungs clear Results & Data Results & Data Vital Signs (Past 12 Hours) Vital Signs Temp Pulse Resp BP Pulse Ox O2 Del Method 10/30/24 06:37 36.6 C 75 20 154/103 H 99 Room Air
[2024-10-30] MEDS: ceFAZolin 3000MG 3,000 MG/72.5 ML BAG IV SCH (07:46)
[2024-10-30] MEDS ORDERED: HYDROmorphone INJ 2 MG/ML SYR/VIAL ONE (08:28)
[2024-10-30] MEDS: ceFAZolin 330 MG/ML 1 GM VIAL ONE (08:28)
[2024-10-30] MEDS ORDERED: ePHEDrine sulfate 50 MG/ML AMP ONE (08:38)
[2024-10-30] MEDS ORDERED: SUGAMMADEX SODIUM 200 MG/2 ML VIAL IV ONE (09:09)
--- NOTE | 2024-10-30 09:27 | Operative Report ---
Post Operative Report Pre & Post Diagnosis Operation Date: 10/30/24 07:45 Pre-Op Diagnosis: Cervical spondylosis with radiculopathy Post-Op Diagnosis: same I identified the patient and participated in the time-out.: Yes Procedure Operation Date: 10/30/24 07:45 Actual Procedures #1 anterior cervical discectomy with bilateral foraminotomies C3-C4 C4-C5. #2 anterior cervical arthrodesis C3-C4 C4-C5. #3 globus coalition cage 8 mm in height at C3-C4, 9 mm height at C4-C5. Both filled with os design bone graft Surgeon Sharif Muniz DO Professor Of Physical Education Denny Gray Estimated Blood Loss 100 Findings Consistent with Post-Op Diagnosis Specimens None Indications This is a 54-year-old male presents above-mentioned diagnosis after failing course of nonoperative care is here for surgical invention. Description of Procedure Patient was met with identified informed consent obtained. Patient was then taken to the operative suite underwent intubation placed in a supine position the Beni table with a head [place] home visitor home base head start. All bony prominences well- padded eyes inspected to ensure no external pressure placed upon them. This point the anterior cervical spine was prepped and draped no sterile fashion. The assistance of fluoroscopy identified the C3-4 vertebral body and a transverse incision was placed along the right anterior aspect of the cervical spine overlying his region. Blunt dissection with the assistance of bipolar cautery performed down to and exposing the anterior cervical spine from C3 3 to C5. A self-retaining retractor was then placed. Informed complete discectomy of C4-C5 out to the uncovertebral joints bilaterally. [place] distracting pins u tilized to assist in visualization. I performed bilateral foraminotomies. Endplates burred to subcortical bleeding bone and a 9 mm coalition interbody cage tapped into position and screwed into place. Then proceeded at C3-C4. Again complete discectomy performed up to the uncovertebral joints bilaterally. [place] distracting pins again utilized. Removed all posterior fibers longitudinal ligament bilateral foraminotomies performed. Endplates burred to subcortical bleeding bone and an 8 mm coalition interbody cage filled with os designed tapped into position. Screwed in place with fluoroscopic visualization. The incision was then copiously irrigated explored to ensure no damage to surrounding structures remaining bleeding. 10 round JENNIFER drain inserted. The incision was then closed with 2 Vicryl in the fascia and a 4 Monocryl for final skin closure. Steri-Strips sterile dressing placed. Patient waken taken to PACU in stable condition. Please note spinal cord monitoring visualized at the procedure no changes noted. Denny Gray was present at the entire surgeon while the patient positioning complex portions of the surgery and fascial closure. I attest to the content of the Intraoperative Record and any orders documented therein. Any exceptions are noted below.
--- NOTE | 2024-10-30 09:50 | Fluoroscopy Report ---
FL cervical 2-3V CLINICAL HISTORY: C3-C5 ACDF TECHNIQUE: 2 views were obtained with the C-arm in the OR with the above procedure. Total fluoroscopy time was 12 seconds. Comparison: Comparison is made to cervical spine fluoroscopy 03/14/2018 FINDINGS/IMPRESSION: Intraoperative images were obtained of C3-C5 ACDF. Please correlate with intraoperative fluoroscopy and operative report. ACT 112: Negative or not required by law. Electronically signed by: Luis Eduardo Cano M.D. 10/30/2024 9:49 AM
[2024-10-30] MEDS: LABETALOL HCL IV 5 MG/ML 20ML IV STA (10:34)
[2024-10-30] MEDS: fentaNYL citrate PF 100 MCG/2 ML VIAL IV PRN (10:37)
[2024-10-30] MEDS: hydrALAZINE HCL 20 MG/ML VIAL IV STA (10:57)
[2024-10-30] MEDS ORDERED: dexAMETHasone 8 MG in SYRINGE 0 ML IV PRN (11:14)
[2024-10-30] MEDS ORDERED: ACETAMINOPHEN 500 MG TAB PO PRN (11:14)
[2024-10-30] MEDS ORDERED: DO NOT ADMINISTER PNEUMOCOCCAL VACCINE PRN (11:14)
[2024-10-30] MEDS ORDERED: hydrOXYzine HCl 25 MG TAB PO PRN (11:14)
[2024-10-30] MEDS ORDERED: HYDROmorphone INJ 0.5 MG/0.5 ML SYR IV PRN (11:14)
[2024-10-30] MEDS ORDERED: diphenhydrAMINE Capsule 25 MG CAP PO PRN (11:14)
[2024-10-30] MEDS ORDERED: NALOXONE HCL 0.4 MG/1 ML VIAL/CARP IV PRN (11:14)
[2024-10-30] MEDS ORDERED: MAGNESIUM HYDROXIDE SUSP 30 ML UDC PO PRN (11:14)
[2024-10-30] MEDS ORDERED: RACEPINEPHRINE 2.25% NEBU SOLN 0.5 ML VIAL INH PRN (11:14)
[2024-10-30] MEDS ORDERED: traMADol HCL 50 MG TABLET PO PRN (11:14)
[2024-10-30] MEDS ORDERED: METOCLOPRAMIDE HCL INJ 5 MG/ML 2 ML VIAL IV PRN (11:14)
[2024-10-30] MEDS ORDERED: ACETAMINOPHEN 1,000 MG/100 ML VIAL IV PRN (11:14)
[2024-10-30] MEDS ORDERED: bisacodyL 10 MG SUPP PR PRN (11:14)
[2024-10-30] MEDS ORDERED: ALUMINUM/MAGNESIUM SUSP 30 ML UDC PO PRN (11:14)
[2024-10-30] MEDS ORDERED: DO NOT ADMINISTER FLU VACCINE PRN (11:14)
[2024-10-30] MEDS ORDERED: LORazepam 0.5 MG TAB PO PRN (11:14)
[2024-10-30] MEDS ORDERED: FAMOTIDINE 20 MG TAB PO PRN (11:14)
[2024-10-30] MEDS ORDERED: LORazepam 2 MG/1 ML VIAL IV PRN (11:14)
[2024-10-30] MEDS ORDERED: SOD PHOSPHATE/SOD BIPHOSPHATE ENEMA 132 ML BTL PR PRN (11:14)
[2024-10-30] MEDS ORDERED: ONDANSETRON 4 MG OD TAB PO PRN (11:14)
[2024-10-30] MEDS ORDERED: PROMETHAZINE 12.5 MG/50.5 ML BAG IV PRN (11:14)
[2024-10-30] MEDS: LABETALOL HCL IV 5 MG/ML 20ML IV ONE (11:47)
[2024-10-30] MEDS: hydrALAZINE HCL 20 MG/ML VIAL ONE (11:50)
--- NOTE | 2024-10-30 12:07 | Anesthesiology Progress Note ---
Date of Service October 30, 2024 Anesthesia Post Procedure Vital Signs Vital Signs: Temp Pulse Pulse Resp BP BP Pulse Ox 10/30/24 11:10 36.7 C 74 10 L 149/97 H 95 10/30/24 11:00 68 9 L 151/102 H 95 10/30/24 10:50 67 8 L 144/102 H 94 10/30/24 10:40 80 10 L 150/100 H 93 10/30/24 10:34 87 158/109 H 10/30/24 10:30 80 13 158/109 H 94 10/30/24 10:20 70 12 148/101 H 97 10/30/24 10:10 69 11 L 155/101 H 96 10/30/24 10:00 68 9 L 145/96 H 98 10/30/24 09:50 67 12 154/102 H 99 10/30/24 09:42 36.0 C L 85 12 174/116 H 97 10/30/24 06:37 36.6 C 75 20 154/103 H 99 O2 Del Method O2 Flow Rate 10/30/24 11:10 Nasal Cannula 2 10/30/24 11:00 Nasal Cannula 2 10/30/24 10:50 Nasal Cannula 2 10/30/24 10:40 Nasal Cannula 2 10/30/24 10:34 10/30/24 10:30 Room Air 10/30/24 10:20 Oxymask 5 10/30/24 10:10 Oxymask 10 10/30/24 10:00 Oxymask 10 10/30/24 09:50 Oxymask 10 10/30/24 09:42 Oxymask 10 10/30/24 06:37 Room Air Pain Intensity Left Neck: Pain Intensity: 3 Transfer of Care Handoff Completed per policy Notes Mental Status: alert / awake / arousable and participated in evaluation Patient Amnestic to Procedure: Yes Nausea / Vomiting: adequately controlled Pain: adequately controlled Airway Patency, RR, SpO2: stable & adequate BP & HR: stable & adequate Hydration State: stable & adequate Anesthetic Complications: no major complications apparent and Pt Satisfied with anesthetic care
[2024-10-30] MEDS: HYDROmorphone INJ 1 MG/ML SYRINGE IV PRN (15:16)
[2024-10-30] MEDS: ceFAZolin 2000MG 2,000 MG/15 ML SYR IV SCH (15:16)
[2024-10-30] MEDS: DOCUSATE SODIUM/SENNA 50/8.6MG TAB PO SCH (21:03)
[2024-10-31] MEDS: oxyCODONE HCL IR 5 MG TAB (IMMEDIATE RELEASE) PO PRN (01:08)
[2024-10-31] MEDS: POLYETHYLENE (MIRALAX) 17 GM PACK PO SCH (05:08)
[2024-10-31] MEDS: LOSARTAN/HCTZ 50/12.5MG TAB PO SCH (08:04)
[2024-10-31] MEDS: CHOLECALCIFEROL 25 MCG (1000 UNITS) TAB PO SCH (08:04)
[2024-10-31] MEDS: ASPIRIN 81 MG ECTAB PO SCH (08:04)
[2024-10-31] MEDS: PARoxetine HCL 10 MG TAB PO SCH (08:04)
[2024-10-31] MEDS: dexAMETHasone 6 MG in SYRINGE 0 ML IV SCH (08:05)
--- NOTE | 2024-10-31 08:39 | Discharge Summary ---
Date of Service October 31, 2024 Admission HPI Per Admitting Provider This is a 54-year-old male presents chronic persistent neck and arm pain after failing course of nonoperative care for surgical invention. Principal Diagnosis Cervical spondylosis with radiculopathy Discharge Data Allergies Allergy/AdvReac Type Severity Reaction Status Date / Time No Known Allergies Allergy Verified 10/30/24 06:36 Procedures Performed Operation Date: 10/30/24 07:45 Actual Procedures p C3-C5 Anterior Cervical Discectomy Fusion, Spinal Cord Monitoring(Not Applicable) - Sharif Muniz DO Ordered Studies 10/30/24 [place] cervical 2-3V Routine Hospital Course (1) Herniation of cervical intervertebral disc with radiculopathy: Patient underwent anterior cervical discectomy and fusion tolerated as well as taken orthopedic for postoperative. Postoperatively he progressed appropriately. Excellent strength testing. Swallowing well. No hoarseness. Pain well-controlled. JENNIFER drain decreasing. Subsidy discharged home. Discharge orders instructions from the chart for further review. Total Time Total Time Spent Total Time Spent (In Minutes): 20 minutes Discharge Plan Discharge Items Patient Disposition: Home - Self-Care Reason For Visit: Cervical Disc Disease, Spinal Stenosis Cervical Discharge Diagnosis: Cervical radiculopathy Activity: As commented below Non-emergency contact: Primary Care Provider Call non-emergency contact if: you have any medication questions Follow-up/Referrals: Maryan Root PA-C [Primary Care Provider] - Diet: Regular Addtl Attending Provider Instructions: ACTIVITY RECOMMENDATIONS: SELF CARE INSTRUCTIONS AFTER CERVICAL FUSIONS 1. No smoking. Smoking drastically decreases the chance of a solid fusion. 2. No bending, lifting more than 5 pounds, or twisting (roll like a log when turning in bed). 3. You may shower 3 days after surgery. Thoroughly dry wound. Do not soak in the tub. 4. Cervical collar: Must be worn at all times including sleeping. You may remove the brace only to bath, eat and if you are sitting in a recliner. 5. Please walk as much as you can for exercise. Gradually increase the distance that you walk as your endurance increases. 6. You may return to previous diet. SPECIAL CARE INSTRUCTIONS: VERY IMPORTANT TO READ AND REVIEW A. Do not take any anti-inflammatory medications (i.e. Indocin, Advil, Aspirin, Naprosyn, Aleve, Motrin, etc.) as these may inhibit the chance of a solid fusion. Tylenol is okay to take. B. Your surgical incision has been closed with a cosmetic suture under the skin that will dissolve in about 6 weeks. In 14 days, you can use a pair of clean scissors and cut the suture that is left outside of the skin at the ends of your incision. C. Complications are uncommon, but please contact us if you have any signs or symptoms of: 1. wound infection (fever higher than 102.5 degrees F, redness, separation of wound, drainage, or increasing pain from the incision) 2. blood clots in legs (pain, swelling, redness and warmth in legs) 3. urinary tract infection (fever higher than 102.5 degrees, burning upon urination or increased frequency of urination) 4. nerve problems (inability to walk on your toes or heels, numbness, loss of bowel or bladder control) 5. any other symptoms that concern you. D. Please call the office at if you have any concerns or questions about your operation or recovery. MANAGING PAIN AFTER SPINAL SURGERY 1. Narcotic medication is intended for short-term use and will be provided for surgical pain. Surgical pain usually lasts for a period of 4-6 weeks. Narcotic medication includes Percocet, Vicodin, Darvocet, Tylenol #3 or Lortab. 2. Longer-term pain is more appropriately treated with non-narcotic medication such as Tylenol ES. 3. Muscle spasm is not appropriately treated with narcotics. Muscle relaxers such as Soma, Flexeril or Skelaxin can be used along with Tylenol ES. 4. Remember that we all live with some "aches and pains". This is not unusual or uncommon after an injury or as we get older. 5. We will provide appropriate medication within the normal guidelines of their prescribed use. We will also be very cautious and aware of potential abuse and extended duration of patients' medication needs. 6. Please allow 2-3 days to process refills. Prescriptions will not be mailed but must be picked up at the office. FOLLOW UP VISIT: Keep your scheduled follow-up appointment. Any questions, please call the office at . Pending Studies at Discharge: No Stand-Alone Forms: [facility], Smoking Cessation Medications and DC Order Prescriptions: New tramadol 50 mg tablet 50 mg PO Q6H PRN (Reason: pain, moderate) Qty: 20 0RF oxycodone 5 mg tablet 5 mg PO Q6H PRN (Reason: pain) Qty: 20 0RF Continued paroxetine HCl [Paxil] 10 mg Tablet 10 mg PO QAM losartan-hydrochlorothiazide 50-12.5 mg Tablet 1 tab PO QAM aspirin 81 mg Capsule 81 mg PO QAM Vitamin D3 1 dose PO QAM Discharge Orders: Discharge Order (Routine); Ordered 10/31/24 Ordered By: Sharif Muniz Admission Data Admit Date/Time: 10/30/24 09:29 Attending Provider: Sharif Muniz Admit Provider: Sharif Muniz Primary Care Provider: Maryan Root
--- OUTSIDE RECORDS SUMMARY | 2024-10-31 14:50 | External Medical Summary | Summary of Care ---
Author Name Unknown Organization [facility] Address [address] [place] [address] Phone [phone] Care Team Providers Care Biodiesel Plant Manager Name Role Phone Maryan Root PA-C Primary Care Provider +1- [phone] Encounter Details Date Type Department Care Team (Late st Contact Info) Description 10/07/2024 Orders Only [facility] [address] [place] [address] Maryan Root PA-C [address] [place] [address] Allergies No known active allergiesdocumented as of this encounter (statuses as of 10/07/2024) Medications Aspirin 81 MG Tablet Take 1 Tablet by mouth in the morning. Active Cyclobenzaprine HCl 10 MG Oral Tablet (Flexeril)Indicati ons:DDD (degenerative disc disease), cervical,Osteoarth ritis of spine with radiculopathy, cervical region,Cervical radiculopathy Take by mouth 1 Tablet as needed in the morning AND 1 Tablet as needed at noon AND 1 Tablet as needed in the evening for Pain or Muscle spasms. 90 Tablet 1 2 Active Triamcinolone Acetonide 0.5 % External Cream (Aristocort)Indica tions:Eczema of both external ears Apply topically to affected area 2 times a day. 60 g 5 3 Active PARoxetine HCl 10 MG Oral Tablet (Paxil)Indications :Adjustment disorder with mixed anxiety and depressed mood,Insomnia secondary to depression with anxiety Take 1 Tablet by mouth in the morning. 90 Tablet 1 4 Active Losartan Potassium-HCTZ 50-12.5 MG Oral Tablet (Hyzaar)Indication s:HTN, goal below 140/90 Take 1 Tablet by mouth in the morning. 90 Tablet 1 4 Active documented as of this encounter (statuses as of 10/07/2024) Active Problems Problem Noted Date Diagnosed Date Adjustment disorder with mixed anxiety and depre ssed mood 02/03/2024 Insomnia secondary to depression with anxiety Class 2 severe obesity due t o excess calories with serious comorbidity and body mass index (BMI) of 35.0 to 35.9 in adult 10/28/2023 S/P cervical spinal fusion 03/17/2018 Overview (03/20/2018): March 14, 2018: Anterior cervical diskectomy bilateral foraminectomy C5-6 and C6 -7 with anterior cervical arthrodesis C5-6 C6-7 and placement of cortical allograft filled with DBM 8 millimeter in height at C5-6 C6-7 and application of Gaston plate and screws across C5-6 C6-7 HTN, goal below 140/90 03/07/2018 documented as of this encounter (statuses as of 10/07/2024) Resolved Problems Problem Noted Date Diagnosed Date Resolved Date Class 1 obesity due to exces s calories without serious comorbidity with body mass index (BMI) of 32.0 to 32.9 in adult 09/01/202009/2023 documented as of this encounter (statuses as of 10/07/2024) Immunizations Name Administration Dates Next Due TDAP (age 10 and older)(Boostrix) 05/19/2024 documented as of this encounter Social History Tobacco Use Types Packs/Day Years Used Date Smoking Tobacco: Never Smokeless Tobacco: Current Alcohol Use Standard Drinks/Week Comments Yes 0 (1 standard drink = 0.6 oz pur e alcohol) Has a beer ocasionally PHQ-2 Answer Date Recorded PHQ Adult Total Score 0 10/30/2021 Hunger Vital Sign Answer Date Recorded Worried About Running Out of Food in the Last Ye ar Never true 06/17/2019 Ran Out of Food in the Last Year Never true 06/17/2019 Utilities Answer Date Recorded Do you have trouble paying y our heating, water, or electric bill? (Adult - for ages 18 years and over) Not on file 05/05/2024 Is your family able to pay t he heat, water, or electric bill? (Household - for ages 0-17 years) Not on file 05/05/2024 Does your family have access to good internet? (Household - for ages 0-17 years) Not on file 05/05/2024 Social Connections Answer Date Recorded How often do you feel lonely or isolated from those around you? 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 Not on file N ot on file documented as of this encounter Plan of Treatment Upcoming Encounters Date Type Department Care Team (Late st Contact Info) Description 10/21/2024 7:40 AM EST Office Visit [facility] [address] [place] [phone] Maryan Root PA-C [address] [place] [address] 02/15/2025 7:20 AM EDT Office Visit [facility] [address] [place] [address] Maryan Root PA-C [address] [place] [address] Health Maintenance Due Date Last Done Comments Hepatitis C Screening 1988 Hepatitis B Vaccine (1 of 3 - 19+ 3-dose series) 1989 Cologuard 2015 Colonoscopy 2015 Colorectal Cancer Screening 2015 Fecal Occult Blood Test 2015 Sigmoidoscopy 2015 Zoster Vaccines (1 of 2) 2020 Depression Monitoring 10/30/2022 10/30/2021 COVID-19 Vaccine (1 - 2024-25 season) 2024 Influenza Vaccine (FLU shot) (#1) 2024 GFR 10/02/2025 10/02/2024, 10/18, 10/30/2021, Additional history exists Albumin/Creatinine Ratio 10/28/2026 10/28/2023, 07/19 Diabetes Screening 10/02/2027 10/02/2024, 1 12/29/2022, 10/30/2021, Additional history exists Lipid Panel 10/28/2028 10/28/2023, 10/18, 06/24/2015 DTap/Tdap Vaccines (2 - Td or Tdap) 05/19/2034 05/19/2024 HPV (Gardasil) Vaccine Aged Out No lo nger eligible based on patient's age to complete this topic MENINGOCOCCAL (MENACTRA/MENVEO) Aged Out No longer eligible based on patient's age to complete this topic Pneumococcal Vaccine: Pediatrics (0 to 5 Years) and At-Risk Patients (6 to 64 Years) Aged Out No longer eligible based on patient's age to complete this topic documented as of this encounter Medical Devices Not on filedocumented as of this encounter Procedures Procedure Name Priority Date/Time Associated Diagnosis Comments XR CHEST 2 VIEWS Routine 10/02/2024 CHEMISTRY-OUTSIDE Routine 10/02/2024 documented in this encounter Results * CHEMISTRY-OUTSIDE (10/02/2024) Not all results display below - see scan for full detail OUTSIDE LAB (SEE SCANNED REPORT) Comment:SCAN INCLUDES - PT I NR, PTT, BMP, UA, CBCD CREATININE 1.04 0.6 - 1.4 MG/DL OUTSIDE LAB (SEE SCANNED REPORT) EGFR 85.33 ML/MIN OUTSIDE LA B (SEE SCANNED REPORT) POTASSIUM 4.1 3.5 - 5.1 MMOL/L OUTSIDE LAB (SEE SCANNED REPORT) GLUCOSE 98 70 - 99 MG/DL OUTSIDE LAB (SEE SCANNED REPORT) HOURS FASTING OUTSID E LAB (SEE SCANNED REPORT) TRIGLYCERIDES-OU TSIDE LAB OUTSIDE LAB (SEE SCANNED REPORT) CHOLESTEROL-OUTS SUBHASH LAB OUTSIDE LAB (SEE SCANNED REPORT) HDL-OUTSIDE LAB OUTS SUBHASH LAB (SEE SCANNED REPORT) CHOL/HDL RATIO-OUTSIDE LAB OUTSIDE LAB (SEE SCANNED REPORT) LDL (CALCULATED)-OUT SIDE LAB OUTSIDE LAB (SEE SCANNED REPORT) LDL (DIRECT MEASURE)-OUTSIDE LAB OUTSIDE LAB (SEE SCANNED REPORT) HEMOGLOBIN, [id number] LAB OUTSIDE LAB (SEE SCANNED REPORT) PHOSPHORUS-OUTSI DE LAB OUTSIDE LAB (SEE SCANNED REPORT) PTH-OUTSIDE LAB OUTS SUBHASH LAB (SEE SCANNED REPORT) MICROALBUMIN RATIO-OUTSIDE LAB OUTSIDE LAB (SEE SCANNED REPORT) PROTEIN, UA-OUTSIDE LAB NEGATIVE NEGATIVE OUTSIDE LAB (SEE SCANNED REPORT) HGB 15.9 14.0 - 18.0 G/DL OUTSIDE LAB (SEE SCANNED REPORT) 10/02/2024 us Sharif Muniz DO LABORATORY Fin al Result OUTSIDE LAB (SEE SCANNED REPORT) * XR CHEST 2 VIEWS (10/02/2024) Anatomical Region Laterality Modality Chest Other 10/02/2024 us Sharif Muniz DO RADIOLOGY (RAD GENE RAL) Final Result documented in this encounter Care Teams Biodiesel Plant Manager Relationship Specialty Start Date End Date Maryan Root PA-C [facility] [facility] [address] [facility] [place] [address] PCP - General Physician Rack Puncher 06/17/19 documented as of this encounter
--- OUTSIDE RECORDS SUMMARY | 2024-10-31 14:50 | External Medical Summary | Summary of Care ---
Author Name Unknown Organization [facility] Address [address] [place] [address] Phone [phone] Care Team Providers Care Barn Worker Name Role Phone Maryan Root PA-C Primary Care Provider +1- [phone] Reason for Visit * Reason Onset Date Comments MyCode Consent 10/21/2024 Encounter Details Date Type Department Care Team (Late st Contact Info) Description 10/21/2024 Orders Only [facility] [address] [place] [address] Martiat English CHRA MyCode Research Other*[id number]* Allergies No known active allergiesdocumented as of this encounter (statuses as of 10/21/2024) Medications Aspirin 81 MG Tablet Take 1 [...] as of this encounter (statuses as of 10/21/2024) Active Problems Problem Noted Date Diagnosed Date Osteoarthritis of spine with radiculopathy, cerv ical region 10/21/2024 Adjustment disorder with mixed anxiety and depre [...] as of this encounter (statuses as of 10/21/2024) Resolved Problems Problem Noted Date Diagnosed Date Resolved Date Class 1 obesity due to exces s calories without serious comorbidity with body mass index (BMI) of 32.0 to 32.9 in adult 09/01/202009/2023 documented as of this encounter (statuses as of 10/21/2024) Immunizations Name Administration Dates Next Due TDAP [...] 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 documented in this encounter Plan of Treatment Upcoming Encounters Date Type Department Care Team (Late st Contact Info) Description 02/15/2025 7:20 AM EDT Office Visit [facility] [address] [place] [address] Maryan Root PA-C [address] [place] [address] Scheduled Orders Name Type Priority Associated Diagnoses Orde r Schedule MYCODE INITIAL ADULT Lab Routine MyCode Research Other*[id number] Expected: 10/21/2024 (Approximate), Expires: 11/10/2025 Health Maintenance Due Date Last Done Comments Hepatitis C Screening 1988 Hepatitis B Vaccine (1 of 3 - 19+ 3-dose series) 1989 Cologuard 2015 Colonoscopy 2015 Colorectal Cancer Screening 2015 Fecal Occult Blood Test 2015 Sigmoidoscopy 2015 Zoster Vaccines (1 of 2) 2020 Depression Monitoring 10/30/2022 10/30/2021 COVID-19 Vaccine (1 - season) 2024 Influenza Vaccine (FLU shot) (#1) [...] Not on filedocumented as of this encounter Visit Diagnoses Diagnosis MyCode Research Other*[id number] Primary documented in this encounter Care Teams Barn Worker Relationship Specialty Start Date End Date Maryan Root PA-C [facility] [facility] [address] [facility] [place] [address] PCP - General Physician Radio Installer Automobile 06/17/19 documented as of this encounter
--- OUTSIDE RECORDS SUMMARY | 2024-10-31 14:50 | External Medical Summary | Summary of Care ---
Author Name Unknown Organization [facility] Address [address] [facility] [address] Phone [phone] Care Team Providers Care Boat Cleaner Name Role Phone Maryan Root PA-C Primary Care Provider +1- [phone] Reason for Visit * Reason Comments pre-op exam Pre-Op Physical. Pt having a neck procedure for C3-C7. Pt having procedure through [facility] with Dr. Muniz. Ananya Sandoval LPN Encounter Details Date Type Department Care Team (Late st Contact Info) Description 10/21/2024 7:40 AM EST Office Visit [facility] [address] [place] [address] Maryan Root PA-C [address] [place] [address] Preoperative general physical examination*; Osteoarthritis of spine with radiculopathy, cervical region Allergies No known active allergiesdocumented as of [...] in the Last Year Never true 06/17/2019 Sex and Gender Information Value Date Recorded Sex Assigned at Male 06/17/2019 3:06 PM EDT Legal Sex Male 6:27 AM EST Gender Identity Male 06/17/2019 3:06 PM EDT Sexual Orientation Straight 06/17/2019 3: 06 PM EDT 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 Not on file N ot on file documented as of this encounter Last Filed Vital Signs Vital Sign Reading Time Taken Comments Blood Pressure 138/84 10/21/2024 7:41 AM EST Pulse 87 10/21/2024 7:41 AM EST Temperature 35.9 C (96.6 F) 10/21/2024 7:41 AM ES T Respiratory Rate 18 10/21/2024 7:41 AM EST Oxygen Saturation 98% 10/21/2024 7:41 AM EST Inhaled Oxygen Concentration - - Weight 127.6 kg (281 lb 6.4 oz) 10/21/2024 7:41 AM EST Height 190.5 cm (6' 3") 10/21/2024 7:41 AM EST Body Mass Index 35.17 10/21/2024 7:41 AM EST documented in this encounter Progress Notes * Maryan Root PA-C - 10/21/2024 7:50 AM EST Images from the original note were not included. Pre-Operative Medical Evaluation Chief Complaint Patient presents with pre-op exam Pre-Op Physical. Pt having a neck procedure for C3-C7. Pt having procedure through [facility] with Dr. Muniz. Ananya Sandoval LPN Procedure Information Type of Surgery: Cervical Fusion Referring Physician / Surgeon: Cristy Date of procedure: 10/30/24 Brief History of Present Illness: 54 yo male with chronic neck pain. Review of Systems: General: No change in weight, No weakness, No fatigue and No fevers, sweats, or chills Head: No significant headache and No recent significant head injury Eyes: No recent significant change in vision, No eye pain, redness, discharge, or excessive tearingand No diplopia Ears: No recent change in hearing, No tinnitus or vertigo, No ear pain and No ear discharge Nose: No nasal stuffiness and No significant epistaxis Throat/Oropharynx: No teeth or gum problems, No bleeding gums, No tongue complaints, No sore throatand No recent change in voice or hoarseness Neck: No complaint of lumps in neck, No swollen glands, No recent swelling in thyroid area Respiratory: No cough, sputum, or hemoptysis, No wheezing, No shortness of breath and No recent change in breathing Cardiac: No chest pain, No shortness of breath, No dyspnea on exertion, No orthopnea, No paroxysmalnocturnal dyspnea, No edema, No palpitations and No syncope Gastrointestinal: No dysphagia, No significant heartburn, No significant change in appetite, No nausea, vomiting, diarrhea, or constipation, No hematemesis, No blood in stools or black tarry stools, No abdominal bloating or early satiety and No abdominal pain Urinary: No urinary frequency, No dysuria, No hematuria, No urinary urgency, No polyuria, No nocturia, No incontinence, No hesitancy and No sensation of incomplete voiding Musculoskeletal: No joint pain or stiffness, No muscle pains or cramps and No joint swelling, + neck pain Male : No STD, No dysuria, No frequency, No incontinence, No urgency and Performs self testicularexam Skin: No edema, No rash Psychiatric: No depression, No anxiety Medical History Problem List: Adjustment disorder with mixed anxiety and depressed mood (02/03/2024) Insomnia secondary to depression with anxiety (02/03/2024) Class 2 severe obesity due to excess calories with serious comorbidity and body mass index (BMI) of 35.0 to 35.9 in adult ([facility]) (10/28/2023) Class 1 obesity due to excess calories without serious comorbidity with body mass index (BMI) of 32.0 to 32.9 in adult (09/01/2020) S/P cervical spinal fusion (03/17/2018) HTN, goal below 140/90 (03/07/2018) Current Medications Losartan Potassium-HCTZ 50-12.5 MG Oral Tablet (Hyzaar), 1 Tablet, Oral, Daily(AM) PARoxetine HCl 10 MG Oral Tablet (Paxil), 10 mg, Oral, Daily(AM) Triamcinolone Acetonide 0.5 % External Cream (Aristocort), Apply topically to affected area 2 timesa day. Cyclobenzaprine HCl 10 MG Oral Tablet (Flexeril), 10 mg, Oral, TID PRN Aspirin 81 MG Tablet, 1 Tablet, Oral, Daily(AM) Allergies: Patient has no known allergies. Past Medical History: has a past medical history of Hypertension. Past Surgical History: has a past surgical history that includes knee arthroscopy/surgery; Inject Dx/Ther Substance Interlaminar Cervical/Thoracic W Image Guide (N/A, 10/01/2022); Inject Dx/Ther Substance Interlaminar Cervical/Thoracic W Image Guide (N/A, 03/07/2023); and Inject Dx/Ther Substance Interlaminar Cervical/Thor acic W Image Guide (N/A, 09/13/2023). Social History: reports that he has never smoked. He uses smokeless tobacco. He reports current alcohol use. He reports that he does not use drugs. Family History: family history includes Hypertension in his father and mother; No Past Hx in his son and son. Anesthesia History Type of Anesthesia: General Endotracheal Anesthesia reaction: No History of surgical complications: No Personal history of venous thromboembolic disease: No Physical Exam Vitals: 10/21/24 0741 Temp: 96.6 F (35.9 C) Pulse: 87 Resp: 18 SpO2: 98% BP: 138/84 BMI: 35.17 Physical Exam: General: alert and no distress Head: Normocephalic, No masses, lesions, tenderness or abnormalities Eye Exam: PERRL, EOMI, Conjunctiva are pink and non-injected, sclera clear Ears: External ears normal, Canals clear, TM's Normal Nose: no mucosal erythema, no mucosal edema, no purulent discharge Oropharynx: no exudate, no erythema, lips, buccal mucosa, and tongue normal and mucous membranes are moist Neck: supple, no adenopathy Heart: regular rate & rhythm, no murmurs and no gallops Lungs: clear to auscultation Pulses: radial=2/4, posterior tibial=2/4 Abdomen: abdomen soft, nontender, normal bowel sounds Extremities: no joint deformities, effusion, or inflammation, no edema, no clubbing, no cyanosis Neuro Exam: no focal motor/sensory deficits, gait normal Skin: skin color, texture, turgor are normal Labs reviewed and are NOT significant. EKG by my review is NOT significant Surgical Risk Scoring Revised Cardiac Risk Index (RCRI) High-risk type of surgery (examples include vascular and any open intraperitoneal or intrathoracic procedures): 0=No History of ischemic heart disease (history of myocardial infarction or positive exercise test, current compliant of chest pain considered to be secondary to myocardia ischemia, use of nitrate therapy, or ECG with pathological Q waves; do not count prior coronary revascularization procedure unless one of the other criteria for ischemic heart disease is present): 0=No History of heart failure: 0=No History of cerebrovascular disease: 0=No Diabetes mellitus requiring treatment with insulin: 0=No Preoperative serum creatinine >2.0 mg/dL (177 micromol/L): 0=No Pt has revised cardiac index score of: No Risk Factors- 0.4% (95% CI: 0.1-0.8) Screening for Obstructive Sleep Apnea (STOP-BANG) Do you Snore loudly? 0=No Do you often feel Tired, Fatigued, or Sleep? 0=No Has anyone Observed you Stop Breathing or Choking/Gasping during sleep? 0=No Do you have or are you being treated for High Blood Pressure? 1=Yes BMI over 35? 1=Yes Age older than 50? 1=Yes Neck size large? (For males - 17 inches or larger, For females - 16 inches or larger) 0=No Male? 1=Yes Score 0-2:low risk DAMIÁN, 3-4: intermediate risk of DAMIÁN, 5-8: high risk DAMIÁN 4 Assessment and Plan Preoperative general physical examination (Primary) Osteoarthritis of spine with radiculopathy, cervical region - Patient is cleared to have surgery under general anesthesia. Follow Up: Return as scheduled. Functional Assessment They are able to walk up a flight of stairs, walk two blocks at a moderate pace, do heavy house work like vacuuming, and grocery shop. The patient's functional status is good (greater than 4 METS). 1 MET: 4 METs: 4-10 METs: Can take care of self, such as eat, dress or use the toilet. Can walk to block or go up a flight of steps. Can do heavy house work. Surgical Risk Assessment Patient is low medical risk for the listed procedure. Medication adjustments: No Additional consults or testing: No Maryan Root PA-C documented in this encounter Nursing Notes * Ananya Sandoval LPN - 10/21/2024 7:44 AM EST Chief Complaint Patient presents with pre-op exam Pre-Op Physical. Pt having a neck procedure for C3-C7. Pt having procedure through [facility] with Dr. Muniz. Ananya Sandoval LPN Patient has been verbally educated on the need or importance of Colon Cancer Screening, Flu Vaccine, HepB Vaccine, and Tdap Vaccine and has declined topic(s). Ananya Sandoval LPN documented in this encounter Plan of Treatment Upcoming Encounters Date Type Department Care Team (Late st Contact Info) Description 02/15/2025 7:20 AM EDT Office Visit [facility] [address] [place] [address] Maryan Root PA-C [address] [place] [address] Health Maintenance Due Date Last Done Comments Hepatitis C Screening 1988 Hepatitis B Vaccine (1 of 3 - 19+ 3-dose series) 1989 Cologuard 2015 Colonoscopy 2015 Colorectal Cancer Screening 2015 Fecal Occult Blood Test 2015 Sigmoidoscopy 2015 Zoster Vaccines (1 of 2) 2020 Depression Monitoring 10/30/2022 10/30/2021 COVID-19 Vaccine ( - season) 2024 Influenza Vaccine (FLU shot) [...] as of this encounter Visit Diagnoses Diagnosis Preoperative general physical examination- Primary Other specified pre-operative examination Osteoarthritis of spine with radiculopathy, cervical region documented in this encounter Care Teams Boat Cleaner Relationship Specialty Start Date End Date Maryan Root PA-C [address] [facility] [address] [facility] [place] [address] PCP - General Physician Batcher Operator 06/17/19 documented as of this encounter
--- OUTSIDE RECORDS SUMMARY | 2024-10-31 14:50 | External Medical Summary | Summary of Care ---
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 N ot on file documented as of this encounter Plan of Treatment Upcoming Encounters Date Type Department Care Team (Late st Contact Info) Description 10/21/2024 7:40 AM EST Office Visit [facility] [address] [place] [place] [address] Maryan Root PA-C [address] [place] [place] [address] 02/15/2025 7:20 AM EDT Office Visit [facility] [address] [place] [address] Maryan Root PA-C [address] [place] [id number] Health Maintenance Due Date Last Done Comments [...] Procedure Name Priority Date/Time Associated Diagnosis Comments EKG SCANNED RESULT 10/02/2024 documented in this encounter Results * EKG SCANNED RESULT (10/02/2024) 10/02/2024 No Physician Data Unknown EKG Final Result documented in this encounter Care Teams Flour Broker Relationship Specialty Start Date End Date Maryan Root PA-C [address] [facility] [address] [facility] [place] [address] PCP - General Physician Pilates Coordinator 06/17/19 documented as of this encounter
== END 2024-10-31 10:26 | disposition home or self-care (01) ==
LOC: 3E 06:09 → ASU 06:09